=== PATIENT | female | born 1970 | race Caucasian/White ===

== ENCOUNTER 2021-02-24 08:15 | Emergency (ER) | payer OTHER, SELFPAY ==
[2021-02-24 08:31] VITALS: BP 116/71; PULSE 82; RESP 16; TEMP 36.3; O2SAT 100
--- NOTE | 2021-02-24 08:33 | ED.URI ---
HPI - URI/Sore Throat General Chief Complaint: Upper Respiratory Infection Stated Complaint: Sore Throat Time Seen by Provider: 02/24/21 08:36 Source: patient, RN notes reviewed and old records reviewed Mode of arrival: ambulatory Limitations: no limitations History of Present Illness HPI Narrative: 50 year old female presents to [facility] care with complaints of sore throat which started last night only on right side of throat. Patient denies anyone else at home ill, reports has had Covid vaccinations. Patient states that she has had some sinus drainage and congestion for about 2 weeks has also been taking intermittently Zyrtec and NyQuil. She reports no fevers, chills or sweats, denies any nausea or any vomiting or any episodes of diarrhea, reports no cough, or any ear pain. MD elicited complaint: sore throat Treatments prior to arrival: ibuprofen Related Data Home Medications Medication Instructions Recorded Confirmed levothyroxine [Synthroid] 125 mcg PO DAILY 02/24/21 02/24/21 phentermine 15 mg PO DAILY 02/24/21 02/24/21 semaglutide (weight loss) [Wegovy] 2.4 mg SUBCUT WEEKLY 02/24/21 02/24/21 Allergies Allergy/AdvReac Type Severity Reaction Status Date / Time tetracycline Allergy Mild Nausea Verified 02/24/21 08:38 Review of Systems Review of Systems: CONSTITUTIONAL: Denies fever, chills, or sweats. EYES: Denies visual changes, redness, or discharge. ENT: Positive rhinorrhea, mild congestion, sore throat, no otalgia. CARDIOVASCULAR: Denies chest pain, palpitations, or edema. RESPIRATORY: Denies cough or dyspnea. GASTROINTESTINAL: Denies abdominal pain, nausea, vomiting, or diarrhea. GENITOURINARY: Denies dysuria or hematuria. SKIN: Denies rash or itching. MUSCULOSKELETAL: Denies back pain, joint pain, or myalgia. NEUROLOGIC: Denies headache, numbness, or weakness. PSYCHIATRIC: Denies anxiety or depression. All systems reviewed & are unremarkable except as noted in HPI and below PMFSH Past Medical History Medical History (Updated 02/24/21 @ 08:50 by Penny Lewis NP) Hypothyroidism Surgical History Surgical History (Updated 02/24/21 @ 08:34 by Penny Lewis NP) Previous section Family History Family History Mother Family history of thyroid disease Family history of lung cancer Family history of lung disease Grandparent Family history of osteoporosis Family history of cataracts Father Family history of seizure disorder Family history of hearing loss Social History Social History (Updated 02/24/21 @ 08:55 by Penny Lewis NP) Smoking status: Never smoker Alcohol intake: current Alcohol use details: social Substance use: never Living arrangements: with family Gender identity (if verbalized by the patient): Female Comments At time of signature, agree with nursing past medical, surgical, social and family history. There is no relevant family history pertinent to the presenting complaint Exam Narrative: GENERAL: Well-appearing, well-nourished, and in no acute distress. HEAD: Normocephalic, atraumatic. EYES: PERRLA and EOMI. ENT: Nares with mild redness, clear rhinorrhea no epistaxis. Mucous membranes moist.TM's normal with good light reflex, throat with mild redness to right side of throat, no lesions or exudates, no tonsil enlargement,post nasal drainage noted. NECK: Supple. no lymphadenopathy CHEST: Clear to auscultation. No respiratory distress.SAO2 100% on room air HEART: Regular rate and rhythm. No murmur heard. Normal peripheral pulses. ABDOMEN: Soft, nontender, nondistended, normal active bowel sounds. EXTREMITIES: Normal range of motion. No edema. SKIN: Warm, dry, no rash. NEURO: No focal deficits. Alert and oriented x3. Course Vital Signs Vital signs: Vital Signs Temperature 36.3 C L 02/24/21 08:31 Pulse Rate 82 02/24/21 08:31 Respiratory Rate 16 02/24/21 08:31 Blood Pressure 1
== END 2021-02-24 09:05 | disposition home or self-care (01) ==
PROVIDERS: Emergency Provider Registered Nurse
DX: J06.9 Acute upper respiratory infection, unspecified (principal); J02.9 Acute pharyngitis, unspecified; E03.9 Hypothyroidism, unspecified
CPT/HCPCS: 87081; 87880; 99213; G0463